=== PATIENT | male | born 1950 | race Asian ===

== ENCOUNTER 2017-12-29 06:54 | Day surgery (SDC) | payer MEDICARE, OTHER ==
[~2017-12-29] VITALS: Ht 165.1 cm; Wt 62.3 kg
[2017-12-29] MEDS ORDERED: LIDOCAINE HCL 4% 50 ML SOLUTION TP ONE (06:55)
[2017-12-29] MEDS ORDERED: BENZOCAINE 20% 50 MCG/SPRAY 57 GM TP ONE (06:55)
[2017-12-29] MEDS ORDERED: ALBUTEROL SULFATE 2.5 MG/0.5 ML NEB SOLUTION NEB ONE (06:55)
[2017-12-29] MEDS ORDERED: LIDOCAINE HCL 2% 30 ML JELLY TP ONE (06:55)
[2017-12-29] MEDS ORDERED: SODIUM CHLORIDE 0.9% 1,000 ML IV ONE ×2 (06:57→07:30)
[2017-12-29] MEDS ORDERED: SIMV-261 PO (07:22)
[2017-12-29] MEDS ORDERED: FentaNYL CITRATE-PF 100 MCG/2 ML VIAL ONE (07:49)
[2017-12-29] MEDS ORDERED: MIDAZOLAM HCL 2 MG/2 ML VIAL ONE (07:49)
[2017-12-29] MEDS ORDERED: MethylPREDNISolone SOD SUCC 125 MG/2 ML VIAL ONE (09:06)
[2017-12-29] MEDS ORDERED: MethylPREDNISolone SOD SUCC 125 MG/2 ML VIAL IVP ONE (09:15)
[2017-12-29] MEDS ORDERED: OXYGEN THERAPY IH SCH (20:00)
== END 2017-12-29 10:20 | disposition home or self-care (01) ==
LOC: SURGERY 06:54
PROVIDERS: ATTEND Internal Medicine Critical Care Medicine
DX: J38.4 Edema of larynx (principal); B37.0 Candidal stomatitis; J39.8 Other specified diseases of upper respiratory tract; J43.9 Emphysema, unspecified; J84.111 Idiopathic interstitial pneumonia, not otherwise specified; F17.210 Nicotine dependence, cigarettes, uncomplicated; Z98.890 Other specified postprocedural states; Z79.899 Other long term (current) drug therapy
CPT/HCPCS: 31623; 31624; 71045; 87015; 87070; 87147; 87205; 87220; 88108; 88312; J2250; J2930; J3010; J7030

== ENCOUNTER 2021-05-09 06:26 | Day surgery (SDC) | payer OTHER ==
[2021-05-08 08:41] LABS: COVID AG,FIA SOURCE NASOPHARYNGEAL
[~2021-05-09] VITALS: Ht 170.2 cm; Wt 59.1 kg
[~2021-05-09 06:26] MED LIST: ALBU6.7H9 IH; BACL20TA PO; BUDE10.22 IH; CHOL500013 PO; FLUT16H NASAL; GABA-1181 PO; LORA10TA7 PO; MONT10TA32 PO; OLOP5DRO14 OU; OMEP20CA12 PO; SIMV-261 PO
[2021-05-09] MEDS ORDERED: LIDOCAINE 4% 50 ML SOLUTION TP ONE (06:27)
[2021-05-09] MEDS ORDERED: BENZOCAINE 20% 50 MCG/SPRAY 57 GM TP ONE (06:27)
[2021-05-09] MEDS ORDERED: ALBUTEROL SULFATE 2.5 MG/0.5 ML NEB SOLUTION NEB ONE (06:27)
[2021-05-09] MEDS ORDERED: LIDOCAINE 2% 30 ML JELLY TP ONE (06:27)
[2021-05-09] MEDS ORDERED: SODIUM CHLORIDE 0.9% 1,000 ML IV ONE (06:30)
[2021-05-09] MEDS ORDERED: SODIUM CHLORIDE 0.9% 1,000 ML ONE (06:48)
[2021-05-09] MEDS ORDERED: FentaNYL CITRATE PF 100 MCG/2 ML VIAL ONE (07:48)
[2021-05-09] MEDS ORDERED: MIDAZOLAM HCL 2 MG/2 ML VIAL ONE (07:48)
[2021-05-09] MEDS ORDERED: MethylPREDNISolone SOD SUCC 125 MG/2 ML VIAL IVP ONE (08:45)
[2021-05-09] MEDS ORDERED: MethylPREDNISolone SOD SUCC 125 MG/2 ML VIAL ONE (09:16)
[2021-05-09] MEDS ORDERED: OXYGEN THERAPY IH SCH (20:00)
== END 2021-05-09 10:25 | disposition home or self-care (01) ==
LOC: SURGERY 06:26
PROVIDERS: ATTEND Internal Medicine Critical Care Medicine
DX: J38.4 Edema of larynx (principal); B37.0 Candidal stomatitis; J39.8 Other specified diseases of upper respiratory tract; F17.210 Nicotine dependence, cigarettes, uncomplicated; E78.00 Pure hypercholesterolemia, unspecified; Z79.899 Other long term (current) drug therapy; Z98.890 Other specified postprocedural states
CPT/HCPCS: 31623; 31624; 71045; 87015; 87070; 87077; 87101; 87186; 87206; 87220; 87426; 88108; 88184; 88185; 88312; C9803; J2250; J2930; J3010; J7030; J7613; Z7610

== ENCOUNTER 2023-02-08 05:30 | Day surgery (SDC) | payer OTHER ==
[~2023-02-08] VITALS: Ht 170.2 cm; Wt 59.1 kg
[~2023-02-08 05:30] MED LIST changes: +ALBU6.7H14 IH; -ALBU6.7H9 IH; -FLUT16H NASAL; +FLUT16SP NASAL; +MONT-40 PO; -MONT10TA32 PO; -OLOP5DRO14 OU; +OLOP5DRO27 OU
[2023-02-08] MEDS ORDERED: LIDOCAINE 2% 11 ML JELLY TP ONE (05:31)
[2023-02-08] MEDS ORDERED: ALBUTEROL SULFATE 2.5 MG/0.5 ML NEB SOLUTION NEB ONE (05:31)
[2023-02-08] MEDS ORDERED: LIDOCAINE 4% 50 ML SOLUTION TP ONE (05:31)
[2023-02-08] MEDS ORDERED: BENZOCAINE 20% 50 MCG/SPRAY 57 GM TP ONE (05:31)
[2023-02-08] MEDS ORDERED: SODIUM CHLORIDE 0.9% 1,000 ML ONE (07:21)
[2023-02-08] MEDS ORDERED: MIDAZOLAM HCL 2 MG/2 ML VIAL ONE (08:02)
[2023-02-08] MEDS ORDERED: FentaNYL CITRATE PF 100 MCG/2 ML VIAL ONE (08:02)
[2023-02-08] MEDS ORDERED: SODIUM CHLORIDE 0.9% 1,000 ML IV ONE (08:30)
[2023-02-08] MEDS ORDERED: MethylPREDNISolone SOD SUCC 125 MG/2 ML VIAL ONE (09:10)
[2023-02-08] MEDS ORDERED: MethylPREDNISolone SOD SUCC 125 MG/2 ML VIAL IVP ONE (09:15)
== END 2023-02-08 11:00 | disposition home or self-care (01) ==
LOC: SURGERY 05:30
PROVIDERS: ATTEND Internal Medicine Critical Care Medicine
DX: R05.3 Chronic cough (principal); R91.1 Solitary pulmonary nodule; J98.8 Other specified respiratory disorders; J98.09 Other diseases of bronchus, not elsewhere classified; E78.00 Pure hypercholesterolemia, unspecified
CPT/HCPCS: 31623; 88112; 87206; 87101; 87220; 87070; 31624; 71045; 87015; J3010; J2250; J2930; Q9967; J7030; J7613; Z7610

== ENCOUNTER 2025-02-23 06:58 | Day surgery (SDC) | payer OTHER ==
[~2025-02-23] VITALS: Ht 160 cm; Wt 61.7 kg
[~2025-02-23 06:58] MED LIST changes: -OLOP5DRO27 OU; +OLOP5DRO28 OU; +SODIUM CHLORIDE 0.9% 1,000 ML ONE
[2025-02-23] MEDS ORDERED: LIDOCAINE 4% 50 ML SOLUTION TP ONE (06:59)
[2025-02-23] MEDS ORDERED: BENZOCAINE 20% 50 MCG/SPRAY 57 GM TP ONE (06:59)
[2025-02-23] MEDS ORDERED: LIDOCAINE 2% 11 ML JELLY TP ONE (06:59)
[2025-02-23] MEDS ORDERED: ALBUTEROL SULFATE 2.5 MG/0.5 ML NEB SOLUTION NEB ONE (06:59)
[2025-02-23] MEDS ORDERED: FentaNYL CITRATE PF 100 MCG/2 ML VIAL ONE (08:01)
[2025-02-23] MEDS ORDERED: MIDAZOLAM HCL 2 MG/2 ML VIAL ONE (08:02)
[2025-02-23] MEDS: SODIUM CHLORIDE 0.9% 1,000 ML IV ONE (08:28)
[2025-02-23 09:22] VITALS: PULSE 67; RESP 16; O2SAT 100; O2SAT 99
[2025-02-23] MEDS ORDERED: MethylPREDNISolone SOD SUCC 125 MG/2 ML VIAL ONE (09:45)
[2025-02-23] MEDS: MethylPREDNISolone SOD SUCC 125 MG/2 ML VIAL IVP ONE (09:46)
== END 2025-02-23 12:10 | disposition home or self-care (01) ==
LOC: SURGERY 06:58
PROVIDERS: ATTEND Internal Medicine Critical Care Medicine
DX: R05.3 Chronic cough (principal); J38.4 Edema of larynx; B37.0 Candidal stomatitis; F17.210 Nicotine dependence, cigarettes, uncomplicated; I10 Essential (primary) hypertension; Z79.82 Long term (current) use of aspirin; Z79.899 Other long term (current) drug therapy; Z98.890 Other specified postprocedural states
CPT/HCPCS: 31623; 87206; 87101; 87220; 87070; 88108; 87186; 31624; 71045; 87015; J3010; J2250; J2919; J7030; J7613; Z7610